=== PATIENT | female | born 1950 | race African-American/Black ===

== ENCOUNTER 2019-08-16 07:36 | Emergency (ER) | payer OTHER ==
[~2019-08-16] VITALS: Ht 165.1 cm; Wt 64.0 kg
[2019-08-16] MEDS ORDERED: IBUPROFEN 600MG TABLET PO ONE (08:15)
[2019-08-16 08:21] VITALS: BP 157/94
== END 2019-08-16 09:47 | disposition home or self-care (01) ==
LOC: ER 07:49
DX: S82.832A Other fracture of upper and lower end of left fibula, initial encounter for closed fracture (principal); V03.90XA Pedestrian on foot injured in collision with car, pick-up truck or van, unspecified whether traffic or nontraffic accident, initial encounter; Y93.01 Activity, walking, marching and hiking; Y92.410 Unspecified street and highway as the place of occurrence of the external cause
CPT/HCPCS: 29515; 73590; 73610; 99283